=== PATIENT | male | born 1960 | race Caucasian/White ===

== ENCOUNTER → 2021-03-08 | Day surgery (SDC) | payer MEDICARE, MEDICAID ==
[~2021-03-08] VITALS: Ht 170.2 cm; Wt 69.8 kg
[2021-03-08] VITALS (15 sets, daily range): BP systolic 148–186; BP diastolic 75–108
[~2021-03-08] MED LIST: AMYL1CAP62 PO; BUPIVAcaine/PF 2.5 mg/ml (0.25%) 30ml vial ONE; FLUO-1 PO; GABA300C PO; LIDOcaine 2% (20mg/ml) 5ml vial ONE; LIDOcaine 2% 10ml TOPICAL JELLY (Urojet) MM ONE; MIRT-88 PO; OMEP-50 PO; acetaminophen 1,000mg/100ml IV 100 ML IV ONE; albuterol 2.5 MG/3 ML nebule NEB ONE; clindamycin-Cleocin 900mg/D5W 50 ML IV ONE; dexamethasone sod phosphate 4mg/ml inj. ONE; famotidine 20mg tablet PO ONE; fentaNYL/PF 50MCG/1 ML 2ML syringe ONE; glycopyrrolate 0.2mg/ml inj ONE; ipratropium/albuterol 3ml nebule NEB ONE; meperidine/PF 25mg/ml syringe IV ONE; meperidine/PF 25mg/ml syringe IV PRN; meperidine/PF 25mg/ml syringe ONE; midazolam 1 mg/ML 2ml injection ONE; morphine 2 MG/ML inj. syringe IV PRN; morphine 4 MG/ML inj SYRINge IV PRN; neostigmine methylsulfate 1 MG/ML 10ml vial ONE; ondansetron/PF 4mg/2ml inj IV PRN; ondansetron/PF 4mg/2ml inj ONE; proCHLORperazine 10 MG/2 ml inj IV PRN; propofol inj 20 ML IV ONE; ringers solution, lacted 1,000 ML IV SCH; rocuronium 10mg/ml inj IV ONE; sevoflurane 250ml liquid IH ONE
[2021-03-08 10:57] LABS: BASOPHILS # (AUTO) 0.1 X10'3 (0-0.2); EOSINOPHILS # (AUTO) 0.2 X10'3 (0-0.9); EOSINOPHILS % (AUTO) 2.9 % (0-6); HEMATOCRIT 37.5 % (42.0-52.0); HEMOGLOBIN 12.3 g/dl (14.0-17.9); LYMPHOCYTES # (AUTO) 1.4 X10'3 (1.1-4.8); MEAN CORPUSCULAR HEMOGLOBIN 27.9 PG (27.0-31.0); MEAN CORPUSCULAR HGB CONC 32.8 g/dL (33.0-36.5); MEAN CORPUSCULAR VOLUME 85.1 FL (78-98); MONOCYTES # (AUTO) 0.4 X10'3 (0-0.9); MONOCYTES % (AUTO) 6.9 % (2-12); NEUTROPHILS # (AUTO) 3.4 X10'3 (1.8-7.7); NEUTROPHILS % (AUTO) 63.2 % (42-75); PLATELET COUNT 129 X10'3 (140-440); RED BLOOD COUNT 4.41 X10'6 (4.70-6.10); RED CELL DISTRIBUTION WIDTH 18.5 % (11.5-14.5); WHITE BLOOD COUNT 5.4 X10'3 (4.5-11.0)
[2021-03-08 11:07] LABS: PRE OP PROTIME 10.7 SECONDS (9.0-12.0)
[2021-03-08 11:26] LABS: ALANINE AMINOTRANSFERASE 15 U/L (12-78); ALBUMIN 3.2 G/DL (3.4-5.0); ALBUMIN/GLOBULIN RATIO 0.7 (1.1-1.5); ALKALINE PHOSPHATASE 112 IU/L (46-116); ANION GAP 14 (8-16); ASPARTATE AMINO TRANSFERASE 24 U/L (10-37); BILIRUBIN,TOTAL 0.3 MG/DL (0.1-1.0); BLOOD UREA NITROGEN 9 MG/DL (7-18); BUN/CREATININE RATIO 14.1 (5.4-32.0); CALCIUM 8.2 MG/DL (8.5-10.1); CHLORIDE 108 MMOL/L (99-107); CREATININE 0.64 MG/DL (0.60-1.10); GLUCOSE 85 MG/DL (70-104); POTASSIUM 3.8 MMOL/L (3.5-5.1); SODIUM 143 MMOL/L (135-145); TOTAL CARBON DIOXIDE 21.4 MMOL/L (24-32); TOTAL PROTEIN 7.8 G/DL (6.4-8.2); eGFR > 90 ML/MIN
[2021-03-08 12:40] LABS: PLATELET ESTIMATE DECREASED
[2021-03-08 12:41] LABS: ANISOCYTOSIS 2+; LARGE PLATELETS FEW
--- NOTE | 2021-03-08 14:55 | NUR ---
Received from OR via , accompanied by Anesthesiologist DR MÉNDEZ and report given by Anesthesiolgist. PT PRESENT WITH 20G RIGHT WRIST, ABD DRESSSING DRY AND INTACT. VSS. Addendum: 03/08/21 at 1505 by Starr aKmara RN, RN Amended: Links added.
[2021-03-08] MEDS: meperidine/PF 25mg/ml syringe IV PRN ×3 (15:45→16:32)
--- NOTE | 2021-03-08 16:28 | NUR ---
FRANCO CATHETER PLACED 16 HUNGARIAN WITH DRAIN BAG/METER. PT UNABLE TO VOID AFTER HERNIA SURGERY. PT TO FOLLOW UP WITH DR HERNANDEZ IN 48 HOURS TO HAVE FRANCO RE-EVALUATED. Addendum: 03/08/21 at 1630 by Starr Kamara RN RN Amended: Links added.
--- NOTE | 2021-03-08 16:42 | NUR ---
PT HAD 250 ML OF URINO OUT IN FRANCO CATH DRAIN BAG. Addendum: 03/08/21 at 1643 by Starr Kamara RN RN Amended: Links added.
--- NOTE | 2021-03-08 16:59 | NUR ---
DISCHARGE CRITERIA MET, DISCHARGE INSTRUCTIONS GIVEN, DEMONSTRATES VERBAL UNDERSTANDING. DISCHARGED HOME IN GOOD CONDITION. Addendum: 03/08/21 at 1659 by Starr Kamara RN, RN Amended: Links added.
== END | disposition home or self-care (01) ==
LOC: PAS 09:13
PROVIDERS: ATTEND Surgery
DX: K40.90 Unilateral inguinal hernia, without obstruction or gangrene, not specified as recurrent (principal); F32.9 Major depressive disorder, single episode, unspecified; M06.9 Rheumatoid arthritis, unspecified; G89.29 Other chronic pain; D64.9 Anemia, unspecified; F17.210 Nicotine dependence, cigarettes, uncomplicated; Z96.612 Presence of left artificial shoulder joint; Z96.642 Presence of left artificial hip joint; Z96.651 Presence of right artificial knee joint; Z79.899 Other long term (current) drug therapy; Z88.8 Allergy status to other drugs, medicaments and biological substances; Z79.01 Long term (current) use of anticoagulants; Z20.822 Contact with and (suspected) exposure to COVID-19; Z86.19 Personal history of other infectious and parasitic diseases; Z72.89 Other problems related to lifestyle; Z98.890 Other specified postprocedural states
CPT/HCPCS: 36415; 49650; 71045; 80053; 82948; 85025; 85610; 85730; 87426; 93005; 94640; C1758; C1781; J0131; J1100; J2001; J2175; J2250; J2405; J2704; J2710; J3010; J3490; 85008; A4215; A4618; J7120

== ENCOUNTER 2021-12-14 05:41 | Day surgery (SDC) | payer MEDICARE, MEDICAID ==
[2021-12-11 14:22] LABS: BASOPHILS # (AUTO) 0.1 X10'3 (0-0.2); EOSINOPHILS # (AUTO) 0.2 X10'3 (0-0.9); MEAN PLATELET VOLUME 10.2 FL (7.4-10.4); NEUTROPHILS # (AUTO) 3.8 X10'3 (1.8-7.7)
[2021-12-11 14:24] LABS: BASOPHILS % (AUTO) 1.4 % (0-1); EOSINOPHILS % (AUTO) 3.9 % (0-6); LYMPHOCYTES # (AUTO) 1.3 X10'3 (1.1-4.8); LYMPHOCYTES % (AUTO) 22.5 % (21-51); MEAN CORPUSCULAR HEMOGLOBIN 25.4 PG (27.0-31.0); MEAN CORPUSCULAR HGB CONC 32.1 g/dL (33.0-36.5); MEAN CORPUSCULAR VOLUME 79.2 FL (78-98); MONOCYTES # (AUTO) 0.5 X10'3 (0-0.9); MONOCYTES % (AUTO) 8.2 % (2-12); PRE OP HEMATOCRIT 34.1 % (42.0-52.0); PRE OP PLATELET COUNT 187 X10'3 (140-440); RED CELL DISTRIBUTION WIDTH 18.9 % (11.5-14.5)
[2021-12-11 14:24] LABS: CLARITY,URINE CLEAR (Clear); COLOR,URINE YELLOW (Yellow); GLUCOSE, URINE NEGATIVE (Neg); KETONES,URINE NEGATIVE (Neg); LEUKOCYTE ESTERASE ,URINE NEGATIVE (Neg); NITRITES, URINE NEGATIVE (Neg); OCCULT BLOOD,URINE NEGATIVE (Neg); PROTEIN,URINE NEGATIVE (Neg); UROBILINOGEN,URINE 0.2 E.U/dL (0.2-1.0)
[2021-12-11 14:25] LABS: PRE OP HEMOGLOBIN 10.9 g/dL (14.0-17.9)
[2021-12-11 14:25] LABS: UA COLLECTION TYPE CLN CATCH MIDSTREAM
[2021-12-11 14:40] LABS: ALBUMIN/GLOBULIN RATIO 0.6 (1.1-1.5); ALKALINE PHOSPHATASE 123 IU/L (46-116); BLOOD UREA NITROGEN 11 MG/DL (7-18); BUN/CREATININE RATIO 15.5 (5.4-32.0); CALCIUM 8.3 MG/DL (8.5-10.1); CHLORIDE 104 MMOL/L (99-107); CREATININE 0.71 MG/DL (0.60-1.10); PRE OP ALT 13 U/L (30-65); PRE OP ANION GAP 10 (8-16); PRE OP AST 14 U/L (10-37); PRE OP BILIRUB, TOTAL 0.2 MG/DL (0.0-1.0); PRE OP GLUCOSE 81 MG/DL (70-104); PRE OP POTASSIUM 3.7 MMOL/L (3.4-5.1); PRE OP SODIUM 138 MMOL/L (135-145); TOTAL CARBON DIOXIDE 24.3 MMOL/L (24-32); TOTAL PROTEIN 7.9 G/DL (6.4-8.2); eGFR > 90 ML/MIN
[~2021-12-14] VITALS: Ht 170.2 cm; Wt 72.6 kg
[2021-12-14] VITALS (18 sets, daily range): BP systolic 120–176; BP diastolic 65–94
[~2021-12-14 05:41] MED LIST changes: -BUPIVAcaine/PF 2.5 mg/ml (0.25%) 30ml vial ONE; -FLUO-1 PO; -LIDOcaine 2% (20mg/ml) 5ml vial ONE; -LIDOcaine 2% 10ml TOPICAL JELLY (Urojet) MM ONE; -OMEP-50 PO; +OMEP20CA16 PO; +VENL75CA61 PO; -acetaminophen 1,000mg/100ml IV 100 ML IV ONE; -albuterol 2.5 MG/3 ML nebule NEB ONE; +cefazolin/dext.iso 2gm/50ml IV ONE; -clindamycin-Cleocin 900mg/D5W 50 ML IV ONE; -dexamethasone sod phosphate 4mg/ml inj. ONE; -fentaNYL/PF 50MCG/1 ML 2ML syringe ONE; -glycopyrrolate 0.2mg/ml inj ONE; -ipratropium/albuterol 3ml nebule NEB ONE; -meperidine/PF 25mg/ml syringe IV ONE; -meperidine/PF 25mg/ml syringe IV PRN; -meperidine/PF 25mg/ml syringe ONE; -midazolam 1 mg/ML 2ml injection ONE; -morphine 2 MG/ML inj. syringe IV PRN; -morphine 4 MG/ML inj SYRINge IV PRN; -neostigmine methylsulfate 1 MG/ML 10ml vial ONE; -ondansetron/PF 4mg/2ml inj IV PRN; -ondansetron/PF 4mg/2ml inj ONE; -proCHLORperazine 10 MG/2 ml inj IV PRN; -propofol inj 20 ML IV ONE; -rocuronium 10mg/ml inj IV ONE; -sevoflurane 250ml liquid IH ONE
[2021-12-14] MEDS ORDERED: sevoflurane 250ml liquid IH ONE (06:00)
[2021-12-14] MEDS ORDERED: clindamycin-Cleocin 900mg/D5W 50 ML IV ONE (06:50)
[2021-12-14] MEDS ORDERED: midazolam 1 mg/ML 2ml injection ONE (08:36)
[2021-12-14] MEDS ORDERED: FENTANYL CITRATE/PF 50 MCG/1 ML VIAL ONE ×3 (08:36→11:27)
[2021-12-14] MEDS ORDERED: propofol inj 20 ML IV ONE (08:40)
[2021-12-14] MEDS ORDERED: ROPIVAcaine 0.5% (5mg/ml) 30ml vial ONE ×3 (08:40→09:23)
[2021-12-14] MEDS ORDERED: LIDOcaine 2% (20mg/ml) 5ml vial ONE (08:40)
[2021-12-14] MEDS ORDERED: hydrALAZINE 20mg/ml inj. IV PRN (08:45)
[2021-12-14] MEDS ORDERED: HYDROmorphone/PF 0.2 MG/ML SYRINGE IV PRN ×2 (08:45)
[2021-12-14] MEDS ORDERED: ondansetron/PF 4mg/2ml inj IV PRN (08:45)
[2021-12-14] MEDS ORDERED: labetalol 20mg/4ml (5mg/ml) syringe IV PRN (08:45)
[2021-12-14] MEDS ORDERED: fentaNYL/PF 50MCG/1 ML 2ML syringe IV PRN ×2 (08:45)
[2021-12-14] MEDS ORDERED: ringers solution, lacted 1,000 ML IV SCH (08:45)
[2021-12-14] MEDS ORDERED: ROPIVAcaine 0.2%/PF PUMP/bolus 545 ML POPLITEAL SCH (09:25)
[2021-12-14] MEDS ORDERED: ROPIVAcaine 0.2% (10 MG/5 ML) BOLUS INJECTION POPLITEAL PRN (09:25)
[2021-12-14] MEDS ORDERED: acetaminophen 1,000mg/100ml IV 100 ML IV ONE (09:43)
[2021-12-14] MEDS ORDERED: ketorolac trometh. 30mg/ml inj. ONE (09:54)
[2021-12-14] MEDS ORDERED: bacitracin 15gm ointment TP ONE (11:35)
[2021-12-14] MEDS ORDERED: ePHEDrine 50MG/ML INJ. ONE (11:39)
--- NOTE | 2021-12-14 11:55 | NUR ---
PT ARRIVED TO RR VIA [facility], ACCOMPANIED BY DR. PATEL-ANESTHESIA REPORT GIVEN, VSS, PT STILL SLEEPING, ORAL AIRWAY IN PLACE, NO SN/SX OF PAIN, PIV 20G TO RFA, LEFT FOOT ELEVATED AND WARAPPED-CDI, TOES-PINK, WARM, +CAP REFILL, NERVE BLOCK CATHETER TUBING PRESENT FOR ON-Q, SCDS ON.
--- NOTE | 2021-12-14 12:40 | NUR ---
PT AWAKE AND TOLERATING ICE CHIPS, DENIES PAIN, VSS, ON-Q ATTACHED-PT TO BE EDUCATED REGARDING USE ONCE MORE AWAKE
[2021-12-14] MEDS ORDERED: oxyCODONE/APAP 5-325mg tablet PO ONE (13:50)
--- NOTE | 2021-12-14 13:50 | NUR ---
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
[2021-12-14] MEDS ORDERED: acetaminophen 1,000mg/100ml IV 100 ML IV STA (13:55)
--- NOTE | 2021-12-14 15:25 | NUR ---
PT VSS, NO PAIN TO LEFT [id number], NO CHANGES IN ASSESSMENT, PIV D/CD-CANULA INTACT, ON-Q ATTACHED AND RUNNING AT 4ML/HR-EDUCATION GIVEN, PT UNDERSTANDS, GIVEN D/C INSTRUCTIONS-ALL QUESTIONS ANSWERED, TAKEN VIA W/C TO [facility] FOR TRANSPORT HOME WITH ALL BELONGINGS.
== END 2021-12-14 15:25 | disposition home or self-care (01) ==
LOC: PAS 05:41
PROVIDERS: ATTEND Podiatrist Foot & Ankle Surgery
DX: M19.072 Primary osteoarthritis, left ankle and foot (principal); M21.42 Flat foot [pes planus] (acquired), left foot; M25.572 Pain in left ankle and joints of left foot; G89.18 Other acute postprocedural pain; F12.90 Cannabis use, unspecified, uncomplicated; F32.A Depression, unspecified; M06.9 Rheumatoid arthritis, unspecified; G89.29 Other chronic pain; F17.210 Nicotine dependence, cigarettes, uncomplicated; Z79.899 Other long term (current) drug therapy; Z20.822 Contact with and (suspected) exposure to COVID-19; Z79.82 Long term (current) use of aspirin; Z72.89 Other problems related to lifestyle; Z96.651 Presence of right artificial knee joint; Z96.642 Presence of left artificial hip joint; Z96.612 Presence of left artificial shoulder joint; Z98.890 Other specified postprocedural states; Z88.0 Allergy status to penicillin; Z86.19 Personal history of other infectious and parasitic diseases
CPT/HCPCS: 20900; 27687; 28715; 64445; 64447; 73600; 76000; 76942; 80053; 81003; 82948; 85025; 87635; 93005; A6223; C1713; C1716; C1734; C1762; C9803; J0131; J1885; J2250; J2704; J2795; J3010; J3490; J7030; J7120; Z7506; Z7508; Z7512; A4618; A6253; A6449; A7000; C1769